=== PATIENT | female | born 1940 | race Caucasian/White ===

== ENCOUNTER 2016-12-11 20:10 | Outpatient (CLI) | payer MEDICARE ==
[~2016-12-11 20:10] MED LIST: ACET-168 PO; ACHD5005 PO; ACTONEL; AML5T PO; AMOXICILLIN; AMT25T; ASP325T PO; ASP81TEC PO; CALC-656 PO; CALC-793 PO; CHOL2000 PO; CHOL210P2 PO; CLD600T; CLOP75TA PO; CPR500T; CPR500T PO; CYAN100053 IJ; D50KC; DIPH1TAB25 PO; DIPH1TAB45; DOXY100C49 PO; EST45C; EST45C VG; FAMO20TA13; FAMO20TA13 PO; FAMO40TA6 PO; FESO4TAB2 PO; FISH OIL 1,2001 EAC1 PO; GLUCO/CHON PO; HYDR-3714 PO; HYDR1CAP2 PO; HYDR1TAB66 PO; KCL20TCR PO; LEVO125T6 PO; LIOT5TAB3 PO; LIOTHYSO5 PO; LVT.05T PO; MIRA50TA PO; MULT1TAB63 PO; NF-BUDE3C PO; NF-PYRD60T PO; POTA20PI IV; PRAV40TA PO; PRD5T; PRD5T PO; PRED2.5T4 PO; PREVASTATIN; RISE150T PO; SCR1T1 PO; SIMV20TA3 PO; TRAZ-144 PO; TRAZ150T42 PO; TRIM100T7 PO; TRIMETHOPRIM; TRZ50T PO; VITAMIN B; [UNRECOGNIZED DRUG - CODE] PO; [UNRECOGNIZED DRUG - OTHER]; [UNRECOGNIZED DRUG - OTHER] PO; [UNRECOGNIZED DRUG - OTHER] TP; mybetrig
== END 2016-12-12 06:45 | disposition home or self-care (01) ==
LOC: SLEEP 20:10
PROVIDERS: ATTEND Internal Medicine
DX: G47.33 Obstructive sleep apnea (adult) (pediatric) (principal)
CPT/HCPCS: 95811

== ENCOUNTER 2017-06-24 17:25 | Emergency (ER) | payer MEDICARE ==
[~2017-06-24] VITALS: Ht 167.6 cm; Wt 95.3 kg
--- NOTE | 2017-06-24 17:58 | ED Fall/Injury ---
General Chief Complaint: Trauma-Non Activation Stated Complaint: FELL;NOSE INJ Source: patient, spouse Exam Limitations: no limitations History of Present Illness Time seen by provider: 17:54 Initial Comments Patient presents to the ER by private conveyance with a chief complaint of a fall on the street tripping over her own feet and facing down hitting her nose on the brick street. She says she did not lose consciousness however her nose hurts and she has a small cut on her upper lip that it with her teeth. She is no loose or painful dentition. She says that she has a history of chronic UTIs and takes one tablet of Bactrim twice a week try and prevent this. She is not having any dysuria presently. She does take aspirin because she has had stents in the past. She has taken Tylenol and her pain is under control this time. She has no nausea fatigue vision changes. Allergies and Home Medications Allergies Coded Allergies: NSAIDS (Non-Steroidal Anti-Inflamma (Unverified Allergy, Mild, PATIENT REFUSES ALL NSAIDS, 05/14/14) Oxycodone (Unverified Allergy, Mild, CAN TAKE, 05/14/14) propoxyphene (Unverified Allergy, Mild, 05/14/14) Sulfa (Sulfonamide Antibiotics) (Verified Allergy, Unknown, 05/14/14) codeine (Verified Adverse Reaction, Unknown, NAUSEA AND VOMITING, 05/14/14) Home Medications Acetaminophen 500 Mg Tablet, 500 MG PO PRN PRN for PAIN, (Reported) Amlodipine Besylate 5 Mg Tab, 5 MG PO HS, (Reported) Aspirin 325 Mg Tab, 325 MG PO HS, (Reported) Calcium/Vitamin D 1 Tab Tablet, 1 TAB PO 1800 & HS, (Reported) Cholecalciferol 2,000 Unit Capsule, 2,000 UNIT PO 1800, (Reported) Cyanocobalamin 1,000 Mcg/Ml Vial, 1,000 MCG IJ once per month, (Reported) Estrogens Conjugated 45 Gm Cr, 0.5 GM VG twice per week, (Reported) 1 APPLICATORFUL on saturdays and tuesdays Glucosamine/Chondroitin 1 Ea Tab, 1,000 MG PO 1800 & HS, (Reported) Hydrocodone Bit/Acetaminophen Y Tab, 1-2 TAB PO Q4H PRN for PAIN, #30 Ref 0 Prescribed by: LA AMOR on 01/24/15 0081 Levothyroxine Sodium 125 Mcg Tablet, 125 MCG PO DAILY, (Reported) Liothyronine Sodium 5 Mcg Tablet, 7.5 MCG PO DAILY, (Reported) Mirabegron 50 Mg Tab.er.24h, 50 MG PO 1000, (Reported) Multivitamins 1 Ea Tablet, 1 TAB PO 1800, (Reported) Souris-3 Fatty Acids/Fish Oil 1 Each Capsule.dr, 1,500 MG PO HS, (Reported) Souris-3 Fatty Acids/Fish Oil 1 Each Capsule.dr, 3,000 MG PO 1800, (Reported) TAKE 2 (1500MG) CAPSULE Potassium Chloride 20 Meq Tab.prt.sr, 20 MEQ PO 1800 & HS, (Reported) Pravastatin Sodium 40 Mg Tablet, 40 MG PO HS, (Reported) Prednisone 5 Mg Tab, 5 MG PO 1800, (Reported) Trazodone Hcl 50 Mg Tablet, 50 MG PO HS, (Reported) Trimethoprim 100 Mg Tablet, 100 MG PO EVERY 3 DAYS @ HS, (Reported) Constitutional: No chills, No diaphoresis Eyes: Denies Blindness, Denies Blurred Vision Ears, Nose, Mouth, Throat: denies ear pain, denies ear discharge, nose pain, epistaxis Respiratory: No cough, No short of breath Gastrointestinal: No abdominal pain, No constipation, No diarrhea, No nausea Genitourinary: No discharge, No dysuria : No Musculoskeletal: No back pain, No joint pain Psychiatric/Neurological: Denies Headache, Denies Numbness Past Hvyhtih-Kyviia-Wsvlrc Hx Patient Social History Alcohol Use: Denies Use Recreational Drug Use: No Smoking Status: Never a Smoker 2nd Hand Smoke Exposure: No Recent Foreign Travel: No Contact w/Someone Who Travel: No Recent Hopitalizations: No Immunizations Up To Date Tetanus Booster (TDap): Unknown Date of Pneumonia Vaccine: Mar 13, 2010 Date of Influenza Vaccine: Nov 26, 2014 Surgeries HX Surgeries: Yes (THYMECTOMY/ENDOMETRIOSIS SURG, RIGHT TKR, RIGHT TSR) Respiratory Hx Respiratory Disorders: No Cardiovascular Hx Cardiac Disorders: Yes (HEART CATH WITH 3 STENTS, CAD) Neurological Hx Neurological Disorders: Yes (MYASTHENIA GRAVIS- IN REMISSION) Reproductive System Hx Reproductive Disorders: Yes (ENDOMETRIOSIS) Sexually Transmitted Disease: No HIV/AIDS: No Female Reproductive Disorders: Denies Genitourinary Hx Genitourinary Disorders: Yes (INCONTINENCE) Genitourinary Disorders: UTI-Chronic Gastrointestinal Hx Gastrointestinal Disorders: Yes Gastrointestinal Disorders: Colitis, Gastroesophageal Reflux Musculoskeletal Hx Musculoskeletal Disorders: Yes (MYASTEMIA GRAVIS, RT TKR, RIGHT TSR) Endocrine Hx Endocrine Disorders: Yes (THYROIDECTOMY) HEENT HX ENT Disorders: No HEENT Disorders: Cataract Cancer Hx Cancer: No Psychosocial Hx Psychiatric Problems: No Integumentary HX Skin/Integumentary Disorder: No Blood Transfusions Hx Blood Disorders: No Adverse Reaction to a Blood Tr: No Physical Exam Vital Signs Vital Sign - Last 12Hours 06/24/17 17:35 Temp 98.2 Pulse 76 Resp 20 B/P (MAP) 148/96 Pulse Ox 97 O2 Delivery Room Air Capillary Refill : General Appearance: WD/WN, no apparent distress HEENT: PERRL/EOMI, normal ENT inspection, TMs normal, pharynx normal, other ( ecchymosis and edema of the nose bridge with small abrasions) Neck: non-tender, supple, normal inspection Cardiovascular: normal peripheral pulses, regular rate, rhythm Respiratory: lungs clear, normal breath sounds Gastrointestinal: non tender, soft Extremities: normal range of motion, normal capillary refill Neurologic/Psychiatric: spring up supervisor II-XII nml as tested, no motor/sensory deficits, alert, normal mood/affect, oriented x 3 Skin: normal color, warm/dry, other (abrasions on the bridge of nose and a small superficial 1 cm laceration upper lip) [place] Coma Score Best Eye Response: (4) Open Spontaneously Best Verbal Response: (5) Oriented Best Motor Response: (6) Obeys Commands [place] Total: 15 Progress/Results/Core Measures Results/Orders Lab Results Laboratory Tests Test 06/24/17 18:00 Range/Units Urine Color YELLOW Urine Clarity CLEAR Urine pH 5 5-9 Urine Specific [place] 1.025 H 1.016-1.022 Urine Protein 1+ H NEGATIVE Urine Glucose (UA) NEGATIVE NEGATIVE Urine Ketones NEGATIVE NEGATIVE Urine Nitrite NEGATIVE NEGATIVE Urine Bilirubin NEGATIVE NEGATIVE Urine Urobilinogen NORMAL NORMAL MG/DL Urine Leukocyte Esterase NEGATIVE NEGATIVE Urine RBC (Auto) 3+ H NEGATIVE Urine RBC 10-25 H /HPF Urine WBC NONE /HPF Urine Squamous Epithelial Cells 0-2 /HPF Urine Crystals NONE /LPF Urine Bacteria NONE /HPF Urine Casts NONE /LPF Urine Mucus NEGATIVE /LPF Urine Culture Indicated NO My Orders Orders - MARIETTA GIBSON Ua Culture If Indicated (06/24/17 17:58) Ct Head/Cervical Spine Wo (06/24/17 17:58) Vital Signs/I&O Vital Sign - Last 12Hours 06/24/17 17:35 Temp 98.2 Pulse 76 Resp 20 B/P (MAP) 148/96 Pulse Ox 97 O2 Delivery Room Air Progress Note : Time: 18:17 Progress Note Patient is on aspirin and over the age of 65 so we'll get a CT scan. We'll check her urine with her history of [place] current urinary tract infection. Diagnostic Imaging Diagonstic Imaging: CT Plain Films/CT/US/NM/MRI: head (cervical spine without) Comments No evidence of midline shift, mass effect, bleed intracranial. Cervical spine no acute osseous maladies. VIA [place], [place] NAME: JHONNY COLLINS [facility] REC#: [id number] PT STATUS: REG ER : 1940 PHYSICIAN: MARIETTA GIBSON MD ADMIT DATE: 06/24/17/ER Draft Date of Exam:06/24/17 CT HEAD/CERVICAL SPINE WO PROCEDURE: CT head and CT cervical spine without contrast. TECHNIQUE: Multiple contiguous axial images were obtained through the brain and cervical spine without the use of intravenous contrast. Sagittal and coronal reformations through the cervical spine were then performed. INDICATION: Fall. Right-sided neck pain. CT HEAD: The ventricles are normal in size, shape and position. There is no acute parenchymal hemorrhage, edema or mass. There is no extra-axial mass or hemorrhage. There is no fracture. CT CERVICAL SPINE: There is normal height and alignment of the cervical vertebral bodies. There are mild degenerative changes present in the upper levels. There is disc space narrowing and spondylosis at C5-6 causing bilateral foraminal narrowing. There is no fracture or other acute abnormality seen. IMPRESSION: 1. Normal CT of the head. 2. CT of the cervical spine shows degenerative changes with no acute abnormality. Dictated on workstation # [id number] Dict: 06/24/17 1824 Trans: 06/24/17 [address] [facility] [id number] Interpreted by: GAYE DUONG MD Electronically signed by: Reviewed: Reviewed by Me Departure Impression Impression: Primary Impression: Fall (on)(from) sidewalk curb, initial encounter Additional Impressions: Abrasion Laceration Disposition: 01 HOME, SELF-CARE Condition: Stable Departure-Patient Inst. Decision time for Depature: 18:46 Referrals: CHARMAINE WILLIAM DO (PCP/Family) Primary Care Physician Patient Instructions: Concussion, Adult (DC) Add. Discharge Instructions: After a fall you should monitor for the signs or symptoms of a concussion which would include things like headaches or nausea or other on neurologic symptoms. If you experienced these immediately stop doing whatever it is you're doing and rest. If symptoms are persisting you can return to the ER or your primary care physician. Do not attempt to release resume your activities until the next day. Tylenol be reasonable if you're having pain as well as an ice pack directly applied across the bridge of the nose. Do not use NSAIDs such as Advil, Motrin, Aleve, Naprosyn as these may counter affect the antiplatelet effects of your aspirin. You will also have some red blood cells in your urinalysis which you should discuss with either your primary care physician or Dr. Hernandez, urologist within the next few weeks. All discharge instructions reviewed with patient and/or family. Voiced understanding. Copy Copies To 1: CHARMAINE WILLIAM TITUS J Jun 24, 2017 17:58
[2017-06-24 18:08] LABS: BILIRUBIN,URINE NEGATIVE (NEGATIVE); KETONES,URINE NEGATIVE (NEGATIVE); LEUKOCYTE ESTERASE ,URINE NEGATIVE (NEGATIVE); NITRITE,URINE NEGATIVE (NEGATIVE); PH,URINE 5 (5-9); PROTEIN,URINE 1+ (NEGATIVE); UROBILINOGEN,URINE NORMAL (NORMAL)
[2017-06-24 18:17] LABS: SQUAMOUS EPITHELIAL CELL,UR 0-2 /HPF
--- NOTE | 2017-06-24 18:35 | Diagnostic Imaging Report ---
PROCEDURE: CT head and CT cervical spine without contrast. TECHNIQUE: Multiple contiguous axial images were obtained through the brain and cervical spine without the use of intravenous contrast. Sagittal and coronal reformations through the cervical spine were then performed. INDICATION: Fall. Right-sided neck pain. CT HEAD: The ventricles are normal in size, shape and position. There is no acute parenchymal hemorrhage, edema or mass. There is no extra-axial mass or hemorrhage. There is no fracture. CT CERVICAL SPINE: There is normal height and alignment of the cervical vertebral bodies. There are mild degenerative changes present in the upper levels. There is disc space narrowing and spondylosis at C5-6 causing bilateral foraminal narrowing. There is no fracture or other acute abnormality seen. IMPRESSION: 1. Normal CT of the head. 2. CT of the cervical spine shows degenerative changes with no acute abnormality. Dictated by: Dictated on workstation # [id number]
[2017-06-24 18:53] VITALS: BP 127/87
== END 2017-06-24 18:53 | disposition home or self-care (01) ==
LOC: EDUNIT# 17:25 → ER 17:27
DX: S01.21XA Laceration without foreign body of nose, initial encounter (principal); G70.00 Myasthenia gravis without (acute) exacerbation; K21.9 Gastro-esophageal reflux disease without esophagitis; I25.10 Atherosclerotic heart disease of native coronary artery without angina pectoris; N39.0 Urinary tract infection, site not specified; Z95.5 Presence of coronary angioplasty implant and graft; Z79.82 Long term (current) use of aspirin; Z96.651 Presence of right artificial knee joint; Z96.611 Presence of right artificial shoulder joint; W01.198A Fall on same level from slipping, tripping and stumbling with subsequent striking against other object, initial encounter; W10.1XXA Fall (on)(from) sidewalk curb, initial encounter
CPT/HCPCS: 70450; 72125; 81000; 99282

== ENCOUNTER → 2017-08-02 | Outpatient (CLI) | payer MEDICARE ==
--- NOTE | 2017-08-02 15:36 | Diagnostic Imaging Report ---
PROCEDURE: CT abdomen and pelvis without contrast. TECHNIQUE: Multiple contiguous axial images were obtained through the abdomen and pelvis without the use of intravenous contrast. INDICATION: Hematuria. FINDINGS: There is a subsegmental consolidation seen in the left lung base probably related to atelectasis. Low-attenuation lesions seen in the left hepatic lobe up to 1.7 cm in size are probably related to hepatic cysts. The spleen, the pancreas, and the adrenal glands appear unremarkable. The kidneys demonstrate no stones or hydronephrosis. There is a cyst measuring 2.3 cm in the upper pole of the left kidney. No urinary tract stone is seen. There are surgical clips seen on the both sides of the pelvis, and there is a suggestion of prior hysterectomy. Correlate with surgical history. The abdominal aorta is normal in caliber. No para-aortic significantly enlarged lymph node is seen. There is no bowel obstruction. There is diverticulosis. No diverticulitis. There is no significant free fluid or fluid collection in the abdomen or pelvis. The osseous structures demonstrate mild left convexity curvature with advanced degenerative changes seen. There is a tiny left periumbilical fat-containing hernia. IMPRESSION: 1. No urinary tract stones or hydronephrosis. 2. Tiny left periumbilical fat-containing hernia. 3. Diverticulosis. No diverticulitis. Dictated by: Dictated on workstation # [id number]
== END ==
LOC: RAD 12:59
PROVIDERS: ATTEND Urology
DX: K42.9 Umbilical hernia without obstruction or gangrene (principal); K57.30 Diverticulosis of large intestine without perforation or abscess without bleeding
CPT/HCPCS: 74176

== ENCOUNTER → 2018-02-06 | Outpatient (CLI) | payer MEDICARE ==
[~2018-02-06] MED LIST changes: +CATHETER FLUSH 10 ML SYR IV PRN; +REGADENOSON 0.4 MG/5 ML SYR (LEXISCAN) IV ONE
[2018-02-06 08:23] VITALS: BP 173/85
--- NOTE | 2018-02-06 19:16 | STRESS TEST ---
DATE OF SERVICE: 02/06/2018 NUCLEAR MYOVIEW REPORT REFERRING PHYSICIAN: Dr. Landon Mccarthy. In summary, the patient received 10.84 mCi of technetium-99 Myoview and the resting images were obtained. Then, with peak stress level 31.6 mCi of technetium-99 Myoview were injected and the stress images were acquired. The stress test was supervised by Dr. Mccarthy. The resting and stress images were reviewed and compared in the parasternal long axis, parasternal short axis and apical views. Review of the images showed good radiotracer uptake with no significant ischemia or infarction. SSS is 3, SDS 3, TID value 0.97. On the gated images, the left ventricle appeared to be normal size with normal contractility. Calculated ejection fraction 61%. CONCLUSION: 1. No significant ischemia or infarction on SPECT images. 2. Normal left ventricular size with normal contractility. Calculated ejection fraction 61%. Job ID: [id number] DocumentID: [id number] Dictated Date: 02/06/2018 16:15:29 Remote Operations Producer Date: 02/06/2018 18:37:53 Dictated By: BETINA MCNEAL MD
== END ==
LOC: CARD 06:44
PROVIDERS: ATTEND Internal Medicine
DX: R53.83 Other fatigue (principal)
CPT/HCPCS: 78452; 93017

== ENCOUNTER → 2018-06-13 | Outpatient (CLI) | payer MEDICARE ==
[~2018-06-13] MED LIST changes: -CATHETER FLUSH 10 ML SYR IV PRN; -REGADENOSON 0.4 MG/5 ML SYR (LEXISCAN) IV ONE
--- NOTE | 2018-06-13 13:39 | Diagnostic Imaging Report ---
INDICATION: Right hip pain. FINDINGS: There are arthritic changes to the right hip. No fracture, erosion or bony destruction. The obturator rings, symphysis and SI joint appeared unremarkable. IMPRESSION: Osteoarthritic changes but no acute-appearing abnormality. Dictated by: Dictated on workstation # [id number]
== END ==
LOC: RAD 13:08
PROVIDERS: ATTEND Internal Medicine
DX: M16.11 Unilateral primary osteoarthritis, right hip (principal)
CPT/HCPCS: 73502

== ENCOUNTER 2018-08-10 14:19 | Outpatient (RCR) | payer MEDICARE | END 2018-08-20 | disposition home or self-care (01) | LOC: LAB 14:19 | PROVIDERS: ATTEND Internal Medicine | DX: R19.7 Diarrhea, unspecified (principal) | CPT/HCPCS: 87045; 87046; 87324; 87328; 87329; 87449 ==

== ENCOUNTER → 2019-06-19 | Outpatient (CLI) | payer MEDICARE ==
--- NOTE | 2019-06-19 13:05 | Diagnostic Imaging Report ---
INDICATION: Routine screening. COMPARISON: Comparison is made with prior mammograms from 09/20/2017 and 09/07/2016. TECHNIQUE: 2-D and 3-D bilateral screening mammography was performed. The current study was also evaluated with a Computer Aided Detection (CAD) system. 3-D tomosynthesis was also performed and reviewed. FINDINGS: Both breasts remain heterogeneously dense, limiting the sensitivity of mammography. Scattered benign-appearing calcifications are noted bilaterally. No mass or malignant-appearing microcalcifications are seen. The axillae are unremarkable. IMPRESSION: No mammographic features suspicious for malignancy are identified. ACR BI-RADS Category 2: Benign findings. Result letter will be mailed to the patient. Note: At least 10% of breast cancer is not imaged by mammography. Dictated by: Dictated on workstation # [id number]
== END ==
LOC: RAD 11:08
PROVIDERS: ATTEND Internal Medicine
DX: Z12.31 Encounter for screening mammogram for malignant neoplasm of breast (principal)
CPT/HCPCS: 77067

== ENCOUNTER → 2020-12-24 | Outpatient (CLI) | payer MEDICARE ==
--- NOTE | 2020-12-24 14:39 | Diagnostic Imaging Report ---
INDICATION: ACUTE THORACIC BACK PAIN, LOWER BACK PAIN TECHNIQUE: AP, Lateral and Spot imaging of the lumbar spine CORRELATION STUDY: 03/09/2013 FINDINGS: Increasing severity of leftward curvature of the superior lumbar spine apex at L1-L2. Mild degenerative spondylolisthesis of L4 on L5. Trace retrolisthesis of L2 on L3 and L1 on L2. Slight loss of height at superior L1 as well as at T12 level. Age indeterminate but appears to be slightly changed from prior. There is various degrees of disc space narrowing centered at all levels of the lumbar spine. Some areas progressed. Hypertrophic facet arthropathy particularly at the L5-S1, L4-L5 and L3-L4 levels. Prominent osteophyte particularly at the L2-L3 level, some encroachment likely narrowing of the neural foramina and/or spinal canal. Continued rather prominent calcification of the abdominal aorta. SI joints unremarkable. Surgical clips within the pelvis. IMPRESSION: Slight loss of height at the T12-L1 level. Age is indeterminate but does appear to be somewhat changed from prior. There is continued and progressive degenerative change including various degrees disc space narrowing and hypertrophic facet arthropathy. Dictated by: Dictated on workstation # [id number]
--- NOTE | 2020-12-24 14:43 | Diagnostic Imaging Report ---
INDICATION: ACUTE THORACIC BACK PAIN, LOWER BACK PAIN. TECHNIQUE: AP, Lateral and Swimmers imaging of the thoracic spine CORRELATION STUDY: None FINDINGS: Slight accentuated thoracic kyphosis. There is also leftward curvature the thoracolumbar spine. There is a slight loss of height suggested at T11 and T12. Age is indeterminate, however acute compression fracture would be difficult to exclude. There is a diffuse thoracic spondylosis and various degrees of disc space narrowing. Mild endplate lipping present. There is advanced cervical spondylosis present. IMPRESSION: Mild loss of height and compression deformities at the T11 and T12. Age of this is indeterminate. Correlation with symptoms recommended. Dictated by: Dictated on workstation # [id number]
== END ==
LOC: RAD 13:53
PROVIDERS: ATTEND Internal Medicine
DX: M47.816 Spondylosis without myelopathy or radiculopathy, lumbar region (principal); M47.817 Spondylosis without myelopathy or radiculopathy, lumbosacral region; M51.35 Other intervertebral disc degeneration, thoracolumbar region; M51.36 Other intervertebral disc degeneration, lumbar region; M51.04 Intervertebral disc disorders with myelopathy, thoracic region
CPT/HCPCS: 72072; 72100

== ENCOUNTER → 2021-03-26 | Outpatient (CLI) | payer MEDICARE ==
--- NOTE | 2021-03-26 15:39 | Diagnostic Imaging Report ---
INDICATION: Routine screening. COMPARISON is made with prior mammogram 06/19/2019 and 09/20/2017. 2-D and 3-D bilateral screening mammography was performed with CAD. Both breasts are heterogeneously dense, limiting sensitivity of mammography. There are benign calcifications. No mass or malignant appearing microcalcifications are seen. Axillae are unremarkable. IMPRESSION: BI-RADS Category 2 No mammographic features suspicious for malignancy are identified. Dictated by: Dictated on workstation # [id number]
== END ==
LOC: RAD 11:30
PROVIDERS: ATTEND Internal Medicine
DX: Z12.31 Encounter for screening mammogram for malignant neoplasm of breast (principal)
CPT/HCPCS: 77063; 77067

== ENCOUNTER → 2022-03-26 | Outpatient (CLI) | payer MEDICARE | LOC: CARD 14:00 | PROVIDERS: ATTEND Internal Medicine Cardiovascular Disease | DX: I08.3 Combined rheumatic disorders of mitral, aortic and tricuspid valves (principal); I11.9 Hypertensive heart disease without heart failure; I25.10 Atherosclerotic heart disease of native coronary artery without angina pectoris | CPT/HCPCS: 93306 ==

== ENCOUNTER → 2022-04-12 | Outpatient (CLI) | payer MEDICARE ==
--- NOTE | 2022-04-12 17:20 | Diagnostic Imaging Report ---
INDICATION: Routine screening. COMPARISON is made with prior mammograms 03/26/2021 and 09/20/2017. 2-D and 3-D bilateral screening mammography was performed with CAD. Both breasts are heterogeneously dense, limiting the sensitivity of mammography. There are benign calcifications scattered throughout both breasts. No mass or malignant-appearing microcalcifications are seen. Axillae are unremarkable. IMPRESSION: BI-RADS Category 2 No mammographic features suspicious for malignancy are identified. ACR BI-RADS Category 2: Benign findings. Result letter will be mailed to the patient. Note: At least 10% of breast cancer is not imaged by mammography. Dictated by: Dictated on workstation # [id number]
== END ==
LOC: RAD 12:48
PROVIDERS: ATTEND Internal Medicine
DX: Z12.31 Encounter for screening mammogram for malignant neoplasm of breast (principal)
CPT/HCPCS: 77063; 77067

== ENCOUNTER → 2022-05-03 | Outpatient (CLI) | payer MEDICARE ==
[~2022-05-03] VITALS: Ht 170 cm; Wt 95.0 kg
[~2022-05-03] MED LIST changes: +CATHETER FLUSH 10 ML SYR IVP PRN; +REGADENOSON 0.4 MG/5 ML SYR (LEXISCAN) IV ONE
[2022-05-03 09:06] VITALS: BP 138/73
== END ==
LOC: CARD 07:45
PROVIDERS: ATTEND Internal Medicine Cardiovascular Disease
DX: I10 Essential (primary) hypertension (principal); I25.10 Atherosclerotic heart disease of native coronary artery without angina pectoris
CPT/HCPCS: 78452; 93017; A9502

== ENCOUNTER → 2023-01-11 | Outpatient (CLI) | payer MEDICARE ==
[~2023-01-11] MED LIST changes: -CATHETER FLUSH 10 ML SYR IVP PRN; -REGADENOSON 0.4 MG/5 ML SYR (LEXISCAN) IV ONE
--- NOTE | 2023-01-11 17:09 | Diagnostic Imaging Report ---
CLINICAL INDICATION: Patient with cough for 2 months but is getting worse. EXAM: Chest x-ray, PA and lateral views. COMPARISON: Chest x-ray dated 02/11/2014. FINDINGS: Lungs/pleura: There is interval development of mild atelectasis or scarring in the left lung base. Otherwise, the lungs are clear. There is stable elevation of the right hemidiaphragm. There is no pneumothorax. There is no pleural effusion. Mediastinum: Unremarkable. Pulmonary vasculature: Unremarkable. Heart: Unremarkable. Bones/extrathoracic soft tissue: There are degenerative spurs involving the spine. There is left curvature of the thoracolumbar spine region. Interval placement of a left shoulder arthroplasty. Right shoulder arthroplasty is again seen. IMPRESSION: 1: There is no radiographic evidence of an acute cardiopulmonary process. 2: There is mild left basilar atelectasis or scarring. Dictated by: Dictated on workstation # [id number]
== END ==
LOC: RAD 16:31
PROVIDERS: ATTEND Internal Medicine Cardiovascular Disease
DX: R06.09 Other forms of dyspnea (principal)
CPT/HCPCS: 36415; 71046; 83880

== ENCOUNTER 2023-01-26 11:48 | Day surgery (SDC) | payer MEDICARE ==
[~2023-01-26] VITALS: Ht 167.6 cm; Wt 96.2 kg
[2023-01-26] VITALS (8 sets, daily range): BP systolic 134–186; BP diastolic 77–91
[2023-01-26] MEDS ORDERED: NS IV 1000 ML 1,000 ML IV SCH ×2 (12:00→15:00)
[2023-01-26] MEDS ORDERED: HEParin (CATH LAB) 2,000 ML IV ONE (12:00)
[2023-01-26] MEDS ORDERED: LIDOCAINE 1% INJ 20 ML VIAL ONE (12:00)
[2023-01-26] MEDS ORDERED: NS IV 1000 ML 1,000 ML ONE (12:00)
[2023-01-26 12:30] LABS: HEMATOCRIT 44 % (35-52); HEMOGLOBIN 14.2 g/dL (11.5-16.0); MEAN CORPUSCULAR HEMOGLOBIN 31 pg (25-34); MEAN CORPUSCULAR HGB CONC 33 g/dL (32-36); MEAN CORPUSCULAR VOLUME 94 fL (80-99); MEAN PLATELET VOLUME 9.6 fL (9.0-12.2); PLATELET COUNT 254 10^3/uL (130-400); WHITE BLOOD COUNT 6.9 10^3/uL (4.3-11.0)
[2023-01-26 12:33] LABS: BILIRUBIN,URINE NEGATIVE (NEGATIVE); CLARITY,URINE CLEAR; COLOR,URINE YELLOW; GLUCOSE, URINE (UA) NEGATIVE (NEGATIVE); KETONES,URINE NEGATIVE (NEGATIVE); LEUKOCYTE ESTERASE ,URINE TRACE (NEGATIVE); NITRITE,URINE NEGATIVE (NEGATIVE); PROTEIN,URINE NEGATIVE (NEGATIVE)
[2023-01-26 12:41] LABS: INR 0.9 (0.8-1.4); PROTHROMBIN TIME PATIENT 12.7 SEC (12.2-14.7)
[2023-01-26 12:47] LABS: BACTERIA,URINE FEW /HPF
[2023-01-26 12:47] LABS: ALBUMIN 4.3 GM/DL (3.2-4.5); BILIRUBIN,TOTAL 0.8 MG/DL (0.1-1.0); CALCIUM 8.7 MG/DL (8.5-10.1); CREATININE SERUM 0.7 MG/DL (0.60-1.30); POTASSIUM 3.6 MMOL/L (3.6-5.0); TOTAL PROTEIN 7.6 GM/DL (6.4-8.2)
[2023-01-26] MEDS ORDERED: METF-397 PO ×2 (12:56→14:55)
[2023-01-26] MEDS ORDERED: ROSU20TA32 PO (12:56)
[2023-01-26] MEDS ORDERED: PRED5TAB PO ×2 (12:56)
[2023-01-26] MEDS ORDERED: CYAN250010 PO (12:56)
[2023-01-26] MEDS ORDERED: POTA-51 PO (12:56)
[2023-01-26] MEDS ORDERED: ASPI-1238 PO (12:56)
[2023-01-26] MEDS ORDERED: OMEG-132 PO (12:56)
[2023-01-26] MEDS ORDERED: LEVO125T6 PO (12:56)
[2023-01-26] MEDS ORDERED: AMLO-250 PO (12:56)
[2023-01-26] MEDS ORDERED: FLDR.1T PO (12:56)
[2023-01-26] MEDS ORDERED: CRAN400T3 PO (12:56)
[2023-01-26] MEDS ORDERED: ACET325T38 PO (12:56)
[2023-01-26] MEDS ORDERED: EST30C VG (12:56)
[2023-01-26] MEDS ORDERED: CALC600T91 PO (12:56)
[2023-01-26] MEDS ORDERED: FAMO20TA5 PO (12:56)
[2023-01-26] MEDS ORDERED: LIOT5TAB10 PO (12:56)
[2023-01-26] MEDS ORDERED: CHOL200059 PO (12:56)
[2023-01-26] MEDS ORDERED: MULT-1136 PO (13:00)
[2023-01-26] MEDS ORDERED: NITRO DRIP 25000 MCG/D5W 250 ML IV ONE (13:48)
[2023-01-26] MEDS ORDERED: MIDAZOLAM 5 MG/5 ML (VERSED) VIAL ONE (13:48)
[2023-01-26] MEDS ORDERED: fentaNYL INJ 100 MCG/2 ML AMP ONE (13:48)
[2023-01-26] MEDS ORDERED: HEParin 1000 UNIT/ML (10ML VIAL) FOR BOLUS ONE (13:48)
[2023-01-26] MEDS ORDERED: VERAPAMIL 5 MG/2 ML (CALAN) VIAL IV ONE (13:48)
--- NOTE | 2023-01-26 14:06 | Cardiac Procedure Note-CS/ASA ---
Pre-Procedure Note Pre-Op Procedure Note Date of Available H&P: Jan 20, 2023 Date H&P Reviewed: Jan 26, 2023 Time H&P Reviewed: 14:06 History & Physical: H&P Reviewed, Patient Examed, No changes noted Pre-Operative Diagnosis: CAD Conscious Sedation Pre-Proced Time 14:06 ASA Score 3 For ASA 3 and 4: Consider anesthesia and medical clearance. Also, for patients with a history of failed moderate sedation consider anesthesia. Airway Lungs Heart ASA score ASA 1: a normal healthy patient ASA 2: a patient with a mild systemic disease (mid diabetes, controlled hypertension, obesity ASA 3: a patient with a severe systemic disease that limits activity (angina, COPD, prior Myocardial infarction) ASA 4: a patient with an incapacitating disease that is a constant threat to life (CHF, renal failure) ASA 5: a moribund patient not expected to survive 24 hrs. (ruptured aneurysm) ASA 6: a declared brain- patient whose organs are being harvested. For emergent operations, add the letter E after the classification Mallampati Classification Grade 3 Sedation Plan Analgesia, Amnesia, Plan communicated to team members, Discussed options with patient/fam, Discussed risks with patient/fam The patient is an appropriate candidate to undergo the planned procedure, sedation, and anesthesia. The patient immediately re-assessed prior to indication. BETINA MCNEAL MD Jan 26, 2023 14:06
--- NOTE | 2023-01-26 14:56 | Discharge Inst-Post CATH ---
Discharge Inst-CATH/EP Problems Reviewed?: Yes Post Cardiac Cath/EP D/C Inst Follow Up/Plan Appointment with Dr. Hou's office in 2 to 4 weeks <b>CARDIAC CATH/EP PROCEDURE DISCHARGE INSTRUCTIONS</b> ACTIVITY * Go Home directly and rest. * Limit activity of the leg (or wrist if it was used) for 7 days including aer obics, swimming, jogging, bicycling, etc. * Restrict stair-climbing for 7 days if possible, if not, climb up with your non-cath leg, then bring together on the same step. * Avoid lifting, pushing, pulling or excessive movement of the affected extremi ty for 7 days. * Customary sexual activity may be resumed after 2 days-use caution not to use a position that strains or causes pain to the affected extremity. * No driving for 24 hours. * NO SMOKING. * Avoid straining for bowel movements for 7 days. * Gentle walking on level ground is allowed. * Returning to work will depend on the type of procedure and the results. Your doctor will discuss this with you. CALL YOUR DOCTOR FOR ANY OF THE FOLLOWING: *If bleeding from the puncture site occurs- Apply gentle pressure to site with clean cloth and call your doctor or EMS. * If a knot or lump forms under the skin, increases in size, or causes pain. * If bruising appears to be worsening or moving further down your leg instead of disappearing. * Temperature above 101 F. CARE OF YOUR GROIN INCISION; * Bruising or purple discoloration of the skin near the puncture site is common. * You may shower only, no bathtub bathing for 5 days. Be careful to avoid slipping as your leg may feel stiff. * If a closure device was used on your femoral artery, please see the attached guide regarding care of the device and your leg. * Leave dressing on FOR 24 hours. CARE OF YOUR WRIST INCISION; * Bruising or purple discoloration of the skin near the puncture site is common. * You may shower. * DO NOT submerge wrist. * Leave dressing on FOR 24 hours. BETINA HOU MD Jan 26, 2023 14:56
--- NOTE | 2023-01-26 15:00 | Cardiac Cath Report ---
Cardiac Cath Report Physician (s)/Typesetters Printer (s) Physician BETINA MCNEAL MD Pre-Procedure Diagnosis Pre-Procedure Diagnosis: CAD Post-Procedure Note Procedure Start Date: Jan 26, 2023 Name of Procedure: Left heart catheterization Findings/Procedure Note PROCEDURE NOTE: 82-year-old lady with history of aortic valve stenosis, coronary artery disease, has been having chest pain, scheduled for cardiac catheterization possible PTCA. After explaining the procedure to the patient, all pros and cons were explained, all questions were answered. The patient signed the consent and then she was placed in the cardiac catheterization laboratory. Groin was prepped in SL fashion local anesthesia was used. Sheath placed in the right radial artery, multiple different catheters were used to engage the right and left coronary system, did not cross the aortic valve. Angiogram was done. Patient received total of 6008 of heparin. I was able to engage the left system and advanced pressure wire but did not measure the gradient. Reattempting to engage and normalize was unsuccessful. Patient has heavily calcified cusp and aorta. I felt that it is better to refer the patient to a tertiary care center At the end of the procedure the sheath was removed. Vascular band was used FINDINGS: Hemodynamics LV did not cross the aortic valve Aorta 119/59 mean of 56 ANATOMY: Left Main is calcified and free of obstructive disease Left Anterior Descending is heavily calcified with 80% proximal LAD stenosis, stent is patent in the proximal portion beyond the stenotic area Left Circumflex is dominant artery moderate in size with severe disease distally at the PDA level Right Coronary Artery is nondominant artery moderate in size with area of 90% stenosis proximally and at the midportion. I was unable to advance a wire due to positioning of the guide. CONCLUSION: Severe multivessel coronary artery disease in occluding the proximal LAD, proximal and mid right coronary artery and distal circumflex artery. DISCUSSION AND RECOMMENDATION: I will refer the patient for high risk intervention Anesthesia Type: Conscious Sedation Estimated blood loss (mL): 35 ml Contrast Amount: 52 ml Total Radiation Dose: 527 mGy Post-Procedure Diagnosis Post-operative diagnosis: Chest pain Coronary artery disease Hypertension Hyperlipidemia BETINA MCNEAL MD Jan 26, 2023 15:00
== END 2023-01-26 19:05 | disposition home or self-care (01) ==
LOC: CATH 11:48 → ICU 15:08 → CATH 19:05
PROVIDERS: ATTEND Internal Medicine Cardiovascular Disease
DX: I25.10 Atherosclerotic heart disease of native coronary artery without angina pectoris (principal); I10 Essential (primary) hypertension; E66.9 Obesity, unspecified; I65.23 Occlusion and stenosis of bilateral carotid arteries; E78.2 Mixed hyperlipidemia; I35.0 Nonrheumatic aortic (valve) stenosis; Z68.34 Body mass index [BMI] 34.0-34.9, adult; Z79.82 Long term (current) use of aspirin; Z87.891 Personal history of nicotine dependence
CPT/HCPCS: 80053; 80061; 81000; 85027; 85610; 85730; 87081; 87088; 93458; C1769 ×2; C1887 ×2; C1894; 36415; 93005

== ENCOUNTER 2023-07-24 06:08 | Emergency (ER) | payer MEDICARE ==
[~2023-07-24] VITALS: Ht 170.2 cm; Wt 90.7 kg
[~2023-07-24 06:08] MED LIST changes: +ACET325T38 PO; +AMLO-250 PO; +ASPI-1238 PO; +CALC600T91 PO; +CHOL200059 PO; +CRAN400T3 PO; +CYAN250010 PO; +EST30C VG; +FAMO20TA5 PO; +FLDR.1T PO; +LIOT5TAB10 PO; +METF-397 PO; +MULT-1136 PO; +OMEG-132 PO; +POTA-330 PO; +PRED5TAB PO; +ROSU20TA73 PO
[2023-07-24] MEDS ORDERED: TRANEXAMIC ACID 100 MG/ML 10 ML INJECTION ONE (06:40)
[2023-07-24 07:05] LABS: BASOPHILS % (AUTO) 0 % (0-10); EOSINOPHILS % (AUTO) 0 % (0-10); HEMATOCRIT 42 % (35-52); HEMOGLOBIN 13.5 g/dL (11.5-16.0); LYMPHOCYTES # (AUTO) 1.2 10^3/uL (1.0-4.0); LYMPHOCYTES % (AUTO) 15 % (12-44); MEAN CORPUSCULAR HEMOGLOBIN 31 pg (25-34); MEAN CORPUSCULAR HGB CONC 32 g/dL (32-36); MEAN CORPUSCULAR VOLUME 96 fL (80-99); MEAN PLATELET VOLUME 9.1 fL (9.0-12.2); MONOCYTES # (AUTO) 0.8 10^3/uL (0.0-1.0); MONOCYTES % (AUTO) 11 % (0-12); NEUTROPHILS # (AUTO) 5.7 10^3/uL (1.8-7.8); NEUTROPHILS % (AUTO) 74 % (42-75); PLATELET COUNT 244 10^3/uL (130-400); WHITE BLOOD COUNT 7.8 10^3/uL (4.3-11.0)
--- NOTE | 2023-07-24 07:19 | ED General ---
General Chief Complaint: Nasal Problems Stated Complaint: POSS COVID,NOSE BLEED,HIGH BLOOD PRESSURE 226/120 Nursing Triage Note: PT AMB TO RM 6 W C/O NOSEBLEED SX APPROX 0500. PT REPORTS HER TESTED COVID + ON TUESDAY, REPORTS COUGH AND CONGESTION. PT STATES HER BP WAS HIGH AT HOME, A&OX4. Source of Information: Patient Exam Limitations: No Limitations History of Present Illness Date Seen by Provider: Jul 24, 2023 Time Seen by Provider: 06:14 Initial Comments Here with report of nosebleed that started at about 5 AM. She started having runny nose overnight and is concerned that she has COVID because her is positive for this. She is vaccinated and is not short of breath or having other serious symptoms. She did note that her blood pressure was up quite high this morning in the 220s range. She takes her blood pressure medicine at nighttime. She has not missed any doses of her medicine. She denies chest pain or breathing problems and does not currently have fever. She has having a difficult time with stopping the nosebleed. She states that she does not feel like she is lost a lot of blood but she has had persistent nosebleed. She does follow with Dr. Tang. Does have history of myasthenia gravis that is in remission without medication. Patient does report being on aspirin and Plavix. Timing/Duration: 1 Hour Severity: Moderate Associated Systoms: No Cough, No Fever/Chills, No Nausea/Vomiting, No Shortness of Air, No Weakness Allergies and Home Medications Allergies Coded Allergies: vancomycin (Verified Allergy, Severe, 07/24/23) NSAIDS (Non-Steroidal Anti-Inflamma (Unverified Allergy, Mild, PATIENT REFUSES ALL NSAIDS, 05/14/14) oxycodone (Unverified Allergy, Mild, CAN TAKE, 05/14/14) propoxyphene (Unverified Allergy, Mild, 05/14/14) Sulfa (Sulfonamide Antibiotics) (Verified Allergy, Unknown, 05/14/14) gluten (Verified Allergy, Unknown, 07/24/23) codeine (Verified Adverse Reaction, Unknown, NAUSEA AND VOMITING, 05/14/14) Patient Home Medication List Home Medication List Reviewed: Yes Acetaminophen (Tylenol) 325 Mg Tablet, 650 MG PO BID, (Reported) Entered as Reported by: KERWIN SCRUGGS on 01/26/23 1256 Amlodipine Besylate (Amlodipine Besylate) 5 Mg Tablet, 5 MG PO HS, (Reported) Entered as Reported by: KERWIN SCRUGGS on 01/26/23 125 Aspirin (Aspirin EC) 81 Mg Tablet.dr, 81 MG PO HS, (Reported) Entered as Reported by: KERWIN SCRUGGS on 01/26/23 125 Calcium Carbonate (Calcium) 600 Mg Calcium (1500 Mg) Tablet, 600 MG PO HS, (Reported) Entered as Reported by: KERWIN SCRUGGS on 01/26/23 125 Cholecalciferol (Vitamin D3) (Vitamin D3) 50 Mcg (2000 Unit) Tablet, 50 MCG PO 1200, (Reported) Entered as Reported by: KERWIN SCRUGGS on 01/26/23 125 Cranberry Fruit (Cranberry) 400 Mg Tablet, 400 MG PO HS, (Reported) Entered as Reported by: KERWIN SCRUGGS on 01/26/23 125 Cyanocobalamin (Vitamin B-12) (Vitamin B12) 2,500 Mcg Tablet, 2,500 MCG PO 1200, (Reported) Entered as Reported by: KERWIN SCRUGGS on 01/26/23 125 Estrogens Conjugated (Premarin) 0.625 Mg/Gram Cr, 1 APPLIC VG TU,TUE, (Reported) Entered as Reported by: KERWIN SCRUGGS on 01/26/23 125 Famotidine (Famotidine) 20 Mg Tablet, 20 MG PO HS, (Reported) Entered as Reported by: KERWIN SCRUGGS on 01/26/23 125 Fludrocortisone Acetate (Fludrocortisone Acetate) 0.1 Mg Tab, 0.1 MG PO HS, (Reported) Entered as Reported by: KERWIN SCRUGGS on 01/26/23 125 Levothyroxine Sodium (Levothyroxine Sodium) 125 Mcg Tablet, 125 MCG PO DAILY, (Reported) Entered as Reported by: KERWIN SCRUGGS on 01/26/23 125 Liothyronine Sodium (Liothyronine Sodium) 5 Mcg Tablet, 7.5 MCG PO DAILY, (Reported) Entered as Reported by: KERWIN SCRUGGS on 01/26/23 125 Metformin HCl (Metformin HCl) 500 Mg Tablet, 500 MG PO HS Prescribed by: BETINA MCNEAL on 01/26/23 1455 Molnupiravir (Molnupiravir (Eua)) 200 Mg Capsule, 800 MG PO BID Prescribed by: MURPHY RIVERA on 07/24/23 0736 Multivitamin (Multivitamin) 1 Each Tablet, 1 EACH PO 1200, (Reported) Entered as Reported by: KERWIN SCRUGGS on 01/26/23 1300 Omega3,5,6,7,9 No.1/[place] Oil (Complete [place] Softgel) 700 Mg-1,500 Mg Capsule, 1 EACH PO HS, (Reported) Entered as Reported by: KERWIN SCRUGGS on 01/26/23 1256 Potassium Chloride (Potassium Chloride) 20 Meq Tablet.er, 20 MEQ PO BID, (Reported) Entered as Reported by: KERWIN SCRUGGS on 01/26/23 1256 Potassium Chloride (Klor-Con M20) 20 Meq Tab.er.prt, 20 MEQ PO BID Prescribed by: MURPHY RIVERA on 07/24/23 0744 Prednisone (Prednisone) 5 Mg Tablet, 5 MG PO HS, (Reported) Entered as Reported by: KERWIN SCRUGGS on 01/26/23 1256 Prednisone (Prednisone) 5 Mg Tablet, 10 MG PO DAILY, (Reported) Entered as Reported by: KERWIN SCRUGGS on 01/26/23 1256 Rosuvastatin Calcium (Rosuvastatin Calcium) 20 Mg Tablet, 20 MG PO HS, (Reported) Entered as Reported by: KREWIN SCRUGGS on 01/26/23 125 Review of Systems Review of Systems Constitutional: see HPI; No chills, No fever EENTM: epistaxis, nose congestion; No throat pain Respiratory: No cough, No short of breath Cardiovascular: No chest pain, No edema Gastrointestinal: No nausea, No vomiting Genitourinary: no symptoms reported Musculoskeletal: no symptoms reported Skin: no symptoms reported Psychiatric/Neurological: No Symptoms Reported Past Rflpsng-Mhamgf-Rsotbo Hx Patient Social History Tobacco Use?: No Use of E-Cig and/or Vaping dev: No Substance use?: No Alcohol Use?: No Immunizations Up To Date Tetanus Booster (TDap): Unknown Past Medical History Surgeries: Yes (THYMECTOMY/ENDOMETRIOSIS SURG, RIGHT TKR, RIGHT TSR) Cystectomy, Hysterectomy, Orthopedic, Thyroidectomy, Tonsillectomy Respiratory: No Cardiac: Yes (HEART CATH WITH 3 STENTS, CAD) Hypertension Neurological: Yes (MYASTHENIA GRAVIS- IN REMISSION) Reproductive Disorders: Yes (ENDOMETRIOSIS) Female Reproductive Disorders: Denies Sexually Transmitted Disease: No HIV/AIDS: No UTI-Chronic Gastrointestinal: Yes Colitis, Gastroesophageal Reflux Musculoskeletal: Yes (MYASTEMIA GRAVIS, RT TKR, RIGHT TSR) Endocrine: Yes (THYROIDECTOMY) Cataract Cancer: No Psychosocial: No Integumentary: No Blood Disorders: No Adverse Reaction/Blood Tranf: No Family Medical History Reviewed Nursing Family Hx Physical Exam Vital Signs Vital Signs - First Documented 07/24/23 06:15 Temp 36.1 Pulse 99 Resp 20 B/P (MAP) 179/100 (126) Pulse Ox 96 O2 Delivery Room Air Capillary Refill : Less Than 3 Seconds Height, Weight, BMI Height: 5'6.00" Weight: 210lbs. 0.0oz. 95.130465it; 31.00 BMI Method:Stated General Appearance: WD/WN, Mild Distress HEENT: PERRL/EOMI, Other (Active bleeding from the left external and noted posterior.) Neck: Non Tender, Supple Respiratory: Lungs Clear, Normal Breath Sounds Cardiovascular: Regular Rate, Rhythm, No Murmur Gastrointestinal: Non Tender, Soft Back: Normal Inspection, No CVA Tenderness, No Vertebral Tenderness Extremity: Normal Range of Motion, Non Tender Neurologic/Psychiatric: Alert, Oriented x3 Progress/Results/Core Measures Suspected Sepsis SIRS Temperature: Pulse: 99 Respiratory Rate: 20 Laboratory Tests 07/24/23 06:55: White Blood Count 7.8 Blood Pressure 179 /100 Mean: 126 Laboratory Tests 07/24/23 06:55: Creatinine 0.66, Platelet Count 244, Total Bilirubin 0.7 Results/Orders Lab Results Laboratory Tests Test 07/24/23 06:22 07/24/23 06:55 Range/Units Influenza Type A (RT-PCR) Not Detected Not Detecte Influenza Type B (RT-PCR) Not Detected Not Detecte SARS-CoV-2 RNA (RT-PCR) Detected H Not Detecte White Blood Count 7.8 4.3-11.0 10^3/uL Red Blood Count 4.43 3.80-5.11 10^6/uL Hemoglobin 13.5 11.5-16.0 g/dL Hematocrit 42 35-52 % Mean Corpuscular Volume 96 80-99 fL Mean Corpuscular Hemoglobin 31 25-34 pg Mean Corpuscular Hemoglobin Concent 32 32-36 g/dL Red Cell Distribution Width 15.2 H 10.0-14.5 % Platelet Count 244 130-400 10^3/uL Mean Platelet Volume 9.1 9.0-12.2 fL Immature Granulocyte % (Auto) 1 % Neutrophils (%) (Auto) 74 42-75 % Lymphocytes (%) (Auto) 15 12-44 % Monocytes (%) (Auto) 11 0-12 % Eosinophils (%) (Auto) 0 0-10 % Basophils (%) (Auto) 0 0-10 % Neutrophils # (Auto) 5.7 1.8-7.8 10^3/uL Lymphocytes # (Auto) 1.2 1.0-4.0 10^3/uL Monocytes # (Auto) 0.8 0.0-1.0 10^3/uL Eosinophils # (Auto) 0.0 0.0-0.3 10^3/uL Basophils # (Auto) 0.0 0.0-0.1 10^3/uL Immature Granulocyte # (Auto) 0.0 0.0-0.1 10^3/uL Sodium Level 143 135-145 MMOL/L Potassium Level 3.2 L 3.6-5.0 MMOL/L Chloride Level 109 H 98-107 MMOL/L Carbon Dioxide Level 23 21-32 MMOL/L Anion Gap 11 5-14 MMOL/L Blood Urea Nitrogen 17 7-18 MG/DL Creatinine 0.66 0.60-1.30 MG/DL Estimat Glomerular Filtration Rate 88 BUN/Creatinine Ratio 26 Glucose Level 117 H 70-105 MG/DL Calcium Level 8.5 8.5-10.1 MG/DL Corrected Calcium 8.3 L 8.5-10.1 MG/DL Total Bilirubin 0.7 0.1-1.0 MG/DL Aspartate Amino Transf (AST/SGOT) 19 5-34 U/L Alanine Aminotransferase (ALT/SGPT) 19 0-55 U/L Alkaline Phosphatase 63 40-136 U/L Total Protein 7.1 6.4-8.2 GM/DL Albumin 4.2 3.2-4.5 GM/DL My Orders Orders - MURPHY RIVERA MD Influenza A And B By Pcr (07/24/23 06:14) Covid 19 Inhouse Test (07/24/23 06:14) Tranexamic Acid Injection (Tranexamic Ac (07/24/23 06:40) Cbc With Automated Diff (07/24/23 06:53) Comprehensive Metabolic Panel (07/24/23 06:53) Oxymetazoline 0.05% Nasal [place] (Oxymetaz (07/24/23 08:19) Medications Given in ED Current Medications Medications Dose Ordered Sig/Tian Route Start Time Stop Time Status Last Admin Dose Admin Tranexamic Acid 1,000 mg STK-MED ONCE .ROUTE 07/24/23 06:40 07/24/23 06:42 DC 07/24/23 06:50 1,000 MG Vital Signs/I&O 07/24/23 06:15 Temp 36.1 Pulse 99 Resp 20 B/P (MAP) 179/100 (126) Pulse Ox 96 O2 Delivery Room Air Capillary Refill : Less Than 3 Seconds Blood Pressure Mean: 126 Progress Note : Progress Note Seen and evaluated. COVID and influenza screen ordered. Patient does have active nosebleed and we did try nasal clamp but she was just getting posterior drainage. I did attempt to place a anterior posterior rapid Rhino but am unable to place due to anatomy. Ultimately I did place an anterior rapid Rhino 5.5 cm but this did not significantly stop the bleeding either. I did attempt anterior posterior rapid Rhino from the right nostril and again am unable to pass to the posterior section likely due to small anatomy. Ultimately I did place a Merocel sponge soaked with TXA and we will see if that holds. I have ordered CBC and CMP due to concerns of excessive bleeding and the possibility of requiring COVID therapeutic. Monitor patient. Differential diagnosis includes epistaxis, COVID-19 infection, anemia 0719: CBC is grossly normal. COVID test is positive and influenza is negative. Pending chemistry study. 0730: Bleeding is nearly nonexistent now and blood pressure is currently 117/55. I will initiate outpatient treatment with molnupiravir. I will do this for her as well. Chemistries have resulted. Potassium slightly low but not concerning and otherwise grossly normal. I will send a copy of the chart to Dr. William, patient's primary care physician. She will need to follow-up with Dr. Tang earlier this week for reevaluation of the nosebleed. She will call his office on Tuesday. Radha mathews did mention that she is out of her potassium tablets and I will prescribe that for 1 month and then she can get further prescriptions from her doctor. She was very appreciative of this. 0847: We have used Afrin nasal spray and she finally appears to have stopped bleeding adequately. We will keep the Merocel sponge and then she will continue Afrin twice daily for 3 days only and then stop. Discharged home with return precautions. Patient verbalized understanding instructions and agreement with plan. Departure Impression Primary Impression: Epistaxis Additional Impressions: COVID-19 virus infection Hypokalemia Disposition: HOME, SELF-CARE Condition: Stable Departure-Patient Inst. Decision time for Depature: 07:32 Referrals: LOUISA TANG MD, WILLIAM J DO (PCP/Family) Primary Care Physician Patient Instructions: COVID-19 (DC), Molnupiravir FDA Fact Sheet, Nosebleeds (DC) Add. Discharge Instructions: All discharge instructions reviewed with patient and/or family. Voiced understanding. Keep nasal packing in place for the next few days. Call Dr. Tang's office first thing Tuesday for follow-up and for packing removal. Return for persistent nosebleeds, weakness, vomiting, breathing problems, uncontrolled fever or other concerns as needed. Take medications as directed. Copy of the chart was sent to Dr. William and Dr. Tang. You may call Dr. Richardson's office on Tuesday as well and let them know what is going on with the COVID infection and nosebleed. You may take Tylenol/acetaminophen 1000 mg every 6-8 hours as needed for fever or pain. Use the Afrin nasal spray 2 sprays to each nostril twice daily for 3 days only and then stop. Do not use more than 3 days. You may use the Afrin nasal spray on the left side but just bring the sponge and then regular sprays on the right side. Scripts Potassium Chloride (Klor-Con M20) 20 Meq Tab.er.prt 20 MEQ PO BID for 30 Days, #60 TAB 0 Refills Prov: MURPHY RIVERA MD 07/24/23 Molnupiravir (Molnupiravir (Eua)) 200 Mg Capsule 800 MG PO BID for 5 Days, #40 CAP Prov: MURPHY RIVERA MD 07/24/23 Copy Copies To 1: CHARMAINE WILLIAM DO Copies To 2: LOUISA TANG MD, TIMOTHY D MD Jul 24, 2023 07:19
[2023-07-24 07:24] LABS: ALBUMIN 4.2 GM/DL (3.2-4.5); BILIRUBIN,TOTAL 0.7 MG/DL (0.1-1.0); CALCIUM 8.5 MG/DL (8.5-10.1); CREATININE SERUM 0.66 MG/DL (0.60-1.30); POTASSIUM 3.2 MMOL/L (3.6-5.0); TOTAL PROTEIN 7.1 GM/DL (6.4-8.2)
[2023-07-24] MEDS ORDERED: MOLN200C PO (07:36)
[2023-07-24] MEDS ORDERED: POTA-169 PO (07:44)
[2023-07-24] MEDS ORDERED: OXYMETAZOLINE 0.05% NASAL SPRAY 30 ML BTL STA (08:19)
[2023-07-24 09:00] VITALS: BP 119/81
[2023-07-24] MEDS ORDERED: CEPH500C PO (16:05)
== END 2023-07-24 09:00 | disposition home or self-care (01) ==
LOC: EDUNIT# 06:08 → ER 06:11
DX: U07.1 COVID-19 (principal); R04.0 Epistaxis; E87.6 Hypokalemia; R09.89 Other specified symptoms and signs involving the circulatory and respiratory systems; Z20.822 Contact with and (suspected) exposure to COVID-19
CPT/HCPCS: 36415; 80053; 85025; 87636

== ENCOUNTER 2023-07-24 14:28 | Emergency (ER) | payer MEDICARE ==
[~2023-07-24] VITALS: Ht 170 cm; Wt 91.0 kg
[~2023-07-24 14:28] MED LIST changes: +MOLN200C PO; +POTA-169 PO
--- NOTE | 2023-07-24 14:47 | ED EENT ---
History of Present Illness General Chief Complaint: Nasal Problems Stated Complaint: BLEEDING Nursing Triage Note: PT COVID +, WAS SEEN HERE EARLIER FOR NOSE BLEED AND IS BACK WITH NOSE BLEED Source: patient Exam Limitations: no limitations History of Present Illness Date Seen by Provider: Jul 24, 2023 Time Seen by Provider: 14:22 Initial Comments Here with report of return of bleeding to her left nare. She was seen this morn ing and is found to be COVID-positive. She had left sided nosebleed that was very difficult to stop earlier. She had attempt at rapid Rhino anterior posterior and then anterior and that did not stop and finally Merocel sponge with TXA did seem to stop the bleeding. She states she fell asleep and noted that the bleeding restarted. She returns. She is dripping anteriorly does not seem to have blood posteriorly. She did state that she is spit out a large clot. Timing/Duration: gradual, this morning Location: other (Left nare) Prearrival Treatment: squeezing nostrils, nasal packing Allergies and Home Medications Allergies Coded Allergies: vancomycin (Verified Allergy, Severe, 07/24/23) NSAIDS (Non-Steroidal Anti-Inflamma (Unverified Allergy, Mild, PATIENT REFUSES ALL NSAIDS, 05/14/14) oxycodone (Unverified Allergy, Mild, CAN TAKE, 05/14/14) propoxyphene (Unverified Allergy, Mild, 05/14/14) Sulfa (Sulfonamide Antibiotics) (Verified Allergy, Unknown, 05/14/14) gluten (Verified Allergy, Unknown, 07/24/23) codeine (Verified Adverse Reaction, Unknown, NAUSEA AND VOMITING, 05/14/14) Patient Home Medication List Home Medication List Reviewed: Yes Acetaminophen (Tylenol) 325 Mg Tablet, 650 MG PO BID, (Reported) Entered as Reported by: KERWIN SCRUGGS on 01/26/23 1256 Amlodipine Besylate (Amlodipine Besylate) 5 Mg Tablet, 5 MG PO HS, (Reported) Entered as Reported by: KERWIN SCRUGGS on 01/26/23 1256 Aspirin (Aspirin EC) 81 Mg Tablet.dr, 81 MG PO HS, (Reported) Entered as Reported by: KERWIN SCRUGGS on 01/26/23 1256 Calcium Carbonate (Calcium) 600 Mg Calcium (1500 Mg) Tablet, 600 MG PO HS, (Reported) Entered as Reported by: KERWIN SCRUGGS on 01/26/23 1256 Cholecalciferol (Vitamin D3) (Vitamin D3) 50 Mcg (2000 Unit) Tablet, 50 MCG PO 1200, (Reported) Entered as Reported by: KERWIN SCRUGGS on 01/26/23 125 Cranberry Fruit (Cranberry) 400 Mg Tablet, 400 MG PO HS, (Reported) Entered as Reported by: KERWIN SCRUGGS on 01/26/23 125 Cyanocobalamin (Vitamin B-12) (Vitamin B12) 2,500 Mcg Tablet, 2,500 MCG PO 1200, (Reported) Entered as Reported by: KERWIN SCRUGGS on 01/26/23 1256 Estrogens Conjugated (Premarin) 0.625 Mg/Gram Cr, 1 APPLIC VG ,TUE, (Reported) Entered as Reported by: KERWIN SCRUGGS on 01/26/23 125 Famotidine (Famotidine) 20 Mg Tablet, 20 MG PO HS, (Reported) Entered as Reported by: KERWIN SCRUGGS on 01/26/23 125 Fludrocortisone Acetate (Fludrocortisone Acetate) 0.1 Mg Tab, 0.1 MG PO HS, (Reported) Entered as Reported by: KERWIN SCRUGGS on 01/26/23 125 Levothyroxine Sodium (Levothyroxine Sodium) 125 Mcg Tablet, 125 MCG PO DAILY, (Reported) Entered as Reported by: KERWIN SCRUGGS on 01/26/23 125 Liothyronine Sodium (Liothyronine Sodium) 5 Mcg Tablet, 7.5 MCG PO DAILY, (Reported) Entered as Reported by: KERWIN SCRUGGS on 01/26/23 125 Metformin HCl (Metformin HCl) 500 Mg Tablet, 500 MG PO HS Prescribed by: BETINA MCNEAL on 01/26/23 1455 Molnupiravir (Molnupiravir (Eua)) 200 Mg Capsule, 800 MG PO BID Prescribed by: MURPHY RIVERA on 07/24/23 0736 Multivitamin (Multivitamin) 1 Each Tablet, 1 EACH PO 1200, (Reported) Entered as Reported by: KERWIN SCRUGGS on 01/26/23 1300 Omega3,5,6,7,9 No.1/[place] Oil (Complete [place] Softgel) 700 Mg-1,500 Mg Capsule, 1 EACH PO HS, (Reported) Entered as Reported by: KERWIN SCRUGGS on 01/26/23 1256 Potassium Chloride (Potassium Chloride) 20 Meq Tablet.er, 20 MEQ PO BID, (Reported) Entered as Reported by: KERWIN SCRUGGS on 01/26/23 1256 Potassium Chloride (Klor-Con M20) 20 Meq Tab.er.prt, 20 MEQ PO BID Prescribed by: MURPHY RIVERA on 07/24/23 0744 Prednisone (Prednisone) 5 Mg Tablet, 5 MG PO HS, (Reported) Entered as Reported by: KERWIN SCRUGGS on 01/26/23 1256 Prednisone (Prednisone) 5 Mg Tablet, 10 MG PO DAILY, (Reported) Entered as Reported by: KERWIN SCRUGGS on 01/26/23 1256 Rosuvastatin Calcium (Rosuvastatin Calcium) 20 Mg Tablet, 20 MG PO HS, (Reported) Entered as Reported by: KERWIN SCRUGGS on 01/26/23 1256 Review of Systems Review of Systems Constitutional: No fever Nose: epistaxis Gastrointestinal: No nausea, No vomiting Neurological: Denies Headache, Denies Weakness Past Erxdykq-Vhevzb-Mhpnaq Hx Patient Social History Tobacco Use?: No Substance use?: No Alcohol Use?: No Immunizations Up To Date Tetanus Booster (TDap): Unknown Past Medical History Surgery/Hospitalization HX: HTN, BI LAT KNEES, RT HIP, BI LAT SHOULDER, LOW BACK FUSION, HYST WITH ENDOMETROSIS, THYROIDECTIOMY, MG, CAD WITH 4 STENTS Surgeries: Yes (THYMECTOMY/ENDOMETRIOSIS SURG, RIGHT TKR, RIGHT TSR) Cystectomy, Hysterectomy, Orthopedic, Thyroidectomy, Tonsillectomy Respiratory: No Cardiac: Yes (HEART CATH WITH 3 STENTS, CAD) Hypertension Neurological: Yes (MYASTHENIA GRAVIS- IN REMISSION) Reproductive Disorders: Yes (ENDOMETRIOSIS) Female Reproductive Disorders: Denies Sexually Transmitted Disease: No HIV/AIDS: No UTI-Chronic Gastrointestinal: Yes Colitis, Gastroesophageal Reflux Musculoskeletal: Yes (MYASTEMIA GRAVIS, RT TKR, RIGHT TSR) Endocrine: Yes (THYROIDECTOMY) Cataract Cancer: No Psychosocial: No Integumentary: No Blood Disorders: No Adverse Reaction/Blood Tranf: No Family Medical History Reviewed Nursing Family Hx Physical Exam Vital Signs Vital Signs - First Documented 07/24/23 14:30 Temp 36.7 Pulse 100 Resp 20 B/P (MAP) 148/77 (100) Pulse Ox 96 O2 Delivery Room Air Height, Weight, BMI Height: 5'6.00" Weight: 210lbs. 0.0oz. [id number]; 31.00 BMI Method:Stated General Appearance: WD/WN, no apparent distress Nose: active bleeding, other (Bruising to the left nare noted.) Neck: full range of motion, supple Cardiovascular: regular rate, rhythm, no murmur Respiratory: lungs clear, normal breath sounds Neurologic/Psychiatric: alert, oriented x 3 Progress/Results/Core Measures Results/Orders Vital Signs/I&O 07/24/23 14:30 Temp 36.7 Pulse 100 Resp 20 B/P (MAP) 148/77 (100) Pulse Ox 96 O2 Delivery Room Air Blood Pressure Mean: 100 Progress Progress Note : Progress Note Seen and evaluated. Patient is known to me from this morning. She is still having oozing. I did remove Merocel sponge and small clot came with that. I did again try to place 7.5 cm anterior posterior rapid Rhino without success. She just has too small of anatomy to go full posterior. she did then spit out a very large clot. I then placed a 5.5 cm rapid Rhino as deep as I could and expanded balloon to level to achieve control but still maintain some comfort. She states she can tolerate it at this point. I do not see blood oozing in the posterior pharynx afterwards and anterior she seems to have stopped as well. We will continue to monitor the patient. 320: I did speak with Ami Reyes APRN, nurse practitioner for Dr. Tang. We reviewed current evaluation and therapy. She is recommending antibiotic and if this anterior rapid Rhino or fails, we can try deep pack Merocel sponge and anterior pack Merocel sponge combination and see if that works. Dr. Tang is out of town and so if we are failing to get control adequately, patient will need to be transferred. Currently there is no blood in the posterior pharynx and she has pink-tinged fluid from the naris but does have significant runny nose from COVID infection. 1554: Patient seems to be without bleeding still and she is ready to go home. We will initiate outpatient cephalexin. Patient was instructed to return for any worsening and understands that she may need to be transferred to the we cannot get adequate control of the bleeding. Discharged home with return precautions. Patient verbalized understanding instructions and agreement with plan. Departure Impression Primary Impression: Epistaxis Disposition: 01 HOME, SELF-CARE Condition: Stable Departure-Patient Inst. Decision time for Depature: 15:55 Referrals: CHARMAINE WILLIAM DO (PCP/Family) Primary Care Physician Patient Instructions: Nosebleeds (DC) Add. Discharge Instructions: All discharge instructions reviewed with patient and/or family. Voiced understanding. Do not blow your nose. Take medications as directed including new antibiotic prescription. Start that today. Follow-up with Dr. Tang's office this week for recheck and further evaluation. Call office tomorrow for appointment and understand that you may keep this packing in until . You may take Tylenol/acetaminophen 1000 mg every 6-8 hours as needed for pain. Drink plenty of fluids. You may still have some runny nose and pink nasal drainage but as long as its not actively bleeding this would be expected in tolerable. Copy Copies To 1: LOUISA TANG MD, TIMOTHY D MD Jul 24, 2023 14:47
[2023-07-24 16:05] VITALS: BP 140/71
[2023-07-24] MEDS ORDERED: CEPH500C PO (16:05)
== END 2023-07-24 16:05 | disposition home or self-care (01) ==
LOC: EDUNIT# 14:28 → ER 14:30
DX: S00.33XA Contusion of nose, initial encounter (principal); X58.XXXA Exposure to other specified factors, initial encounter
CPT/HCPCS: 30901